=== PATIENT | male | born 1975 | race African-American/Black ===

== ENCOUNTER 2016-12-25 07:50 | Day surgery (SDC) | payer OTHER ==
[2016-12-23 14:18] VITALS: BMI 42.0
[~2016-12-25 07:50] MED LIST: LACTATED RINGERS 1,000 ML IV SCH
[2016-12-25] MEDS ORDERED: LIDOCAINE 1% 20 ML VIAL (10MG/ML) FOR IV START SQ ONE (08:08)
[2016-12-25 08:12] VITALS: RESP 16; TEMP 98.1
[2016-12-25 08:18] LABS: Glucose,Whole Blood 145 mg/dL (75-99)
[2016-12-25] MEDS ORDERED: LIDOCAINE 1% INJ 10MG/ML (20 ML MDV) ONE (09:04)
[2016-12-25] MEDS ORDERED: PROPOFOL 10 MG/ML 20 ML VIAL IV ONE (09:04)
--- NOTE | 2016-12-25 09:07 | P.GSHP ---
History of Present Illness H&P Date: 12/25/16 Chief Complaint: Change in bowel habits Patient here today for colonoscopy. He has had intermittent diarrhea and constipation. He has a history of frequent boils around the groin and perianal location. Denies rectal bleeding or melena. No family history of colon cancer. Past Medical History Past Medical History: Diabetes Mellitus, Hypertension Additional Past Medical History / Comment(s): "digestive problems" History of Any Multi-Drug Resistant Organisms: None Reported Past Surgical History: Orthopedic Surgery Additional Past Surgical History / Comment(s): Right shoulder rotator cuff repair Past Anesthesia/Blood Transfusion Reactions: No Reported Reaction Past Psychological History: No Psychological Hx Reported Smoking Status: Former smoker Past Alcohol Use History: Occasional Additional Past Alcohol Use History / Comment(s): smoked 15 years 1 ppd quit 2013 Past Drug Use History: None Reported - Past Family History Father Additional Family Medical History / Comment(s): epilepsy Mother Family Medical History: Diabetes Mellitus, Hypertension Medications and Allergies Home Medications Medication Instructions Recorded Confirmed Type Lisinopril-Hctz 10-12.5 mg 1 mg PO DAILY 12/27/14 12/25/16 History [Zestoretic 10-12.5] amLODIPine [Norvasc] 5 mg PO DAILY 12/27/14 12/25/16 History metFORMIN HCL [Glucophage] 1 mg PO HS 12/27/14 12/25/16 History ALPRAZolam [Xanax] 0.5 mg PO DAILY 12/23/16 12/25/16 History Loratadine [Claritin] 10 mg PO DAILY 12/23/16 12/25/16 History Osiel Man Vitamin 1 tab PO DAILY 12/23/16 12/25/16 History Multivitamin [Men's Multi-Vitamin] 1 each PO DAILY 12/23/16 12/25/16 History Turmeric Root Extract [Turmeric] 500 mg PO DAILY 12/23/16 12/25/16 History Allergies Allergy/AdvReac Type Severity Reaction Status Date / Time No Known Allergies Allergy Verified 12/25/16 08:08 Surgical - Exam Vital Signs Temp Pulse Resp BP Pulse Ox 98.1 F 67 16 143/92 98 12/25/16 08:11 12/25/16 08:11 12/25/16 08:11 12/25/16 08:11 12/25/16 08:11 Physical exam: General: Well-developed, well-nourished HEENT: Normocephalic, sclerae nonicteric Abdomen: Nontender, nondistended Extremities: No edema Neuro: Alert and oriented Results - Labs Abnormal Lab Results - Last 24 Hours (Table) 12/25/16 Range/Units 08:14 POC Glucose (mg/dL) 145 H (75-99) mg/dL Assessment and Plan (1) Change in bowel habits Narrative/Plan: Will proceed with colonoscopy at this time. Status: Acute
--- NOTE | 2016-12-25 09:30 | P.PCN ---
Date of Procedure: 12/25/16 Preoperative Diagnosis: Postoperative Diagnosis: Procedure(s) Performed: PREOPERATIVE DIAGNOSIS: Change in bowel habits POSTOPERATIVE DIAGNOSIS: Normal exam PROCEDURE: Colonoscopy ANESTHESIA: MAC SURGEON: Anthony Benjamin M.D. SPECIMENS: None ENDOSCOPIC PROCEDURE: The patient was placed on the endoscopy table in the left decubitus position. The Olympus colonoscope was inserted into the anus and passed under direct visualization to the base of the cecum. The appendiceal orifice was visualized. From that point the scope was slowly withdrawn inspecting all surfaces carefully. There were no neoplastic inflammatory or polypoid lesions throughout the cecum, ascending, transverse, descending, sigmoid and rectum. There was no diverticulosis noted. Digital rectal examination was normal. The patient was taken to the recovery room in stable condition per anesthesia guidelines. RECOMMENDATIONS: Increase fiber. Follow-up colonoscopy 10 years. Implants: Indications for Procedure: Operative Findings: Description of Procedure:
[2016-12-25 09:39] VITALS: BP 131/81; PULSE 65
== END 2016-12-25 10:04 | disposition home or self-care (01) ==
LOC: ORWHC2ENDO 07:50
PROVIDERS: ATTEND Surgery
DX: R19.4 Change in bowel habit (principal); E11.9 Type 2 diabetes mellitus without complications; Z79.84 Long term (current) use of oral hypoglycemic drugs; I10 Essential (primary) hypertension; Z87.891 Personal history of nicotine dependence; Z79.899 Other long term (current) drug therapy
CPT/HCPCS: 45378; J2001; J2704

== ENCOUNTER → 2017-03-12 | Outpatient (CLI) | payer OTHER ==
[2017-03-12 10:49] LABS: Basophils % (A) 1 %; CH 29.4; CHCM 32.7; Eosinophils # (A) 0.3 k/uL (0-0.7); Eosinophils % (A) 6 %; HCT 48.4 % (39.0-53.0); HDW 2.25; HGB 15.4 gm/dL (13.0-17.5); Luc # (Auto) 0.07; Luc % (Auto) 2; Lymphocytes # (A) 1.7 k/uL (1.0-4.8); Lymphocytes % (A) 37 %; MCH 28.6 pg (25.0-35.0); MCHC 31.7 g/dL (31.0-37.0); MCV 90.2 fL (80.0-100.0); Mean Platelet Volume 7.5; Monocytes # (A) 0.3 k/uL (0-1.0); Monocytes % (A) 6 %; Neutrophils # (A) 2.3 k/uL (1.3-7.7); Neutrophils % (A) 50 %; RBC 5.37 m/uL (4.30-5.90); RDW 14.2 % (11.5-15.5); WBC 4.6 k/uL (3.8-10.6); WBC (Perox) 4.18
[2017-03-12 11:09] LABS: ALT 71 U/L (21-72); AST 36 U/L (17-59); Alkaline Phosphatase 65 U/L (38-126); Anion Gap 10 mmol/L; Blood Urea Nitrogen 15 mg/dL (9-20); Calcium 9.5 mg/dL (8.4-10.2); Carbon Dioxide 27 mmol/L (22-30); Chloride 102 mmol/L (98-107); Glucose 270 mg/dL (74-99); Non-African American GFR(MDRD) >60 (>60 ml/min/1.73 sqM); Potassium 4.7 mmol/L (3.5-5.1); Sodium 139 mmol/L (137-145); Total Bilirubin 0.5 mg/dL (0.2-1.3); Total Protein 7.5 g/dL (6.3-8.2)
== END | disposition home or self-care (01) ==
LOC: LABWHC1 10:28
PROVIDERS: ATTEND Family Medicine
DX: E11.65 Type 2 diabetes mellitus with hyperglycemia (principal)
CPT/HCPCS: 36415; 80053; 83605; 85025

== ENCOUNTER → 2017-09-03 | Outpatient (CLI) | payer OTHER ==
--- NOTE | 2017-09-03 13:33 | ECHOF ---
Referral Reason:I10 Hypertention MEASUREMENTS -------- HEIGHT: 188.0 cm WEIGHT: 157.4 kg BP: RVIDd: 2.5 cm (< 3.3) IVSd: 1.2 cm (0.6 - 1.1) LVIDd: 5.3 cm (3.9 - 5.3) LVPWd: 1.4 cm (0.6 - 1.1) IVSs: 1.6 cm LVIDs: 3.8 cm LVPWs: 1.4 cm LA Diam: 4.2 cm (2.7 - 3.8) LAESV Index (A-L): 24.30 ml/m Ao Diam: 3.4 cm (2.0 - 3.7) AV Cusp: 2.2 cm (1.5 - 2.6) LA Diam: 4.5 cm (2.7 - 3.8) MV EXCURSION: 26.377 mm (> 18.000) MV EF SLOPE: 91 mm/s (70 - 150) EPSS: 0.2 cm MV E Janes: 0.45 m/s MV DecT: 197 ms MV A Janes: 0.48 m/s MV E/A Ratio: 0.95 RAP: 5.00 mmHg RVSP: 9.81 mmHg FINDINGS -------- Sinus rhythm. This was a technically adequate study. Morbid Obesity The left ventricular size is normal. There is mild concentric left ventricular hypertrophy. Overa ll left ventricular systolic function is low-normal with, an EF between 50 - 55 %. The right ventricle is normal in size. The left atrium is mildly dilated. The right atrial size is normal. The aortic valve is trileaflet, and appears structurally normal. No aortic stenosis or regurgitation. Mild mitral regurgitation is present. Mild tricuspid regurgitation present. There is no evidence of pulmonary hypertension. The right v entricular systolic pressure, as measured by Doppler, is 9.81mmHg. There is no pulmonic regurgitation present. The aortic root size is normal. There is no pericardial effusion. CONCLUSIONS -------- 1. The left ventricular size is normal. 2. There is mild concentric left ventricular hypertrophy. 3. Overall left ventricular systolic function is low-normal with, an EF between 50 - 55 %. 4. The left atrium is mildly dilated. 5. The aortic valve is trileaflet, and appears structurally normal. No aortic stenosis or regurgitati on. 6. Mild mitral regurgitation is present. 7. Mild tricuspid regurgitation present. 8. There is no evidence of pulmonary hypertension. 9. The right ventricular systolic pressure, as measured by Doppler, is 9.81mmHg. 10. There is no pulmonic regurgitation present. 11. The aortic root size is normal. 12. There is no pericardial effusion. CLAIMS ATTORNEY: Emma Durán RDCS
== END | disposition home or self-care (01) ==
LOC: RADNMMAIN 07:42
PROVIDERS: ATTEND Family Medicine
DX: I08.1 Rheumatic disorders of both mitral and tricuspid valves (principal); I10 Essential (primary) hypertension; R07.1 Chest pain on breathing
CPT/HCPCS: 93306

== ENCOUNTER 2018-04-15 18:46 | Emergency (ER) | payer OTHER ==
[2018-04-15 19:03] VITALS: BP 145/99; PULSE 107; RESP 16; TEMP 98.9
[2018-04-15] MEDS ORDERED: IBUPROFEN 600 MG STARTER PACK 4 TAB BTL PO STA (19:34)
[2018-04-15] MEDS ORDERED: ACET/COD 300 MG/30 MG STARTER PACK 6 TAB BTL PO STA (19:34)
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
== END 2018-04-15 20:02 | disposition home or self-care (01) ==
LOC: EC 18:46
DX: T22.20XA Burn of second degree of shoulder and upper limb, except wrist and hand, unspecified site, initial encounter (principal); T31.0 Burns involving less than 10% of body surface; G47.30 Sleep apnea, unspecified; E11.9 Type 2 diabetes mellitus without complications; I10 Essential (primary) hypertension; Z79.84 Long term (current) use of oral hypoglycemic drugs; Z79.899 Other long term (current) drug therapy; Z87.891 Personal history of nicotine dependence; X08.8XXA Exposure to other specified smoke, fire and flames, initial encounter
CPT/HCPCS: 16020; 99283

== ENCOUNTER → 2019-09-01 | Outpatient (CLI) | payer MEDICAID ==
--- NOTE | 2019-09-01 11:59 | US ---
EXAMINATION TYPE: US groin LT DATE OF EXAM: 09/01/2019 COMPARISON: NONE CLINICAL HISTORY: R19.00 lt groin mass. Left groin mass x 2-3 months, history of infected boils per p atient; diabetes, HTN Left Groin US: at patient's c/o palpable just posterior to skin a complex hypoechoic area is imaged = 1.6 x 2.9 x 1.1cm. Superior to this area, another oval hypoechoic mass, with posterior enhancement, is noted just posterior to skin = 0.8 x 0.9 x 0.5cm. Couple of lymph nodes are noted and larger medial node = 3.7 x 1.6 x 1.0cm. Just below skin surface in the dermal layer and/or more superficial subcutaneous tissue there is foca l hypoechoic anechoic area with increased through transmission with second small area similar identif ied. There are prominent left groin lymph nodes included an elongated 1. Last lymph node identified s hows retention of central fatty hilum. IMPRESSION: As above. Favor normal and subcutaneous infectious process or inflammation. Correlate fo r dermatologic lesion and/or cellulitis. If lesion does not resolve with treatment follow-up imaging would be advised.
== END | disposition home or self-care (01) ==
LOC: RADUSWWP 10:47
PROVIDERS: ATTEND Family Medicine
DX: R19.09 Other intra-abdominal and pelvic swelling, mass and lump (principal); R59.9 Enlarged lymph nodes, unspecified

== ENCOUNTER → 2019-12-11 | Outpatient (CLI) | payer MEDICAID ==
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
== END | disposition home or self-care (01) ==
LOC: RADUSMAIN 12:57
PROVIDERS: ATTEND Family Medicine
DX: K11.21 Acute sialoadenitis (principal)
CPT/HCPCS: 76536

== ENCOUNTER → 2019-12-14 | Outpatient (CLI) | payer MEDICAID ==
[2019-12-14 10:23] LABS: African American GFR (CKD) >90 (>60 ml/min/1.73 sqM); Blood Urea Nitrogen 14 mg/dL (9-20); Non-African American GFR(CKD) >90 (>60 ml/min/1.73 sqM)
--- NOTE | 2019-12-14 11:04 | CT ---
EXAMINATION TYPE: CT soft tissue neck w con DATE OF EXAM: 12/14/2019 COMPARISON: None HISTORY: Lump to right side of jaw CT DLP: 955.3 mGycm CONTRAST: CT scan of the neck is performed with IV Contrast, patient injected with 100 mL of Isovue 300. Contrast enhanced CT of the neck was performed from the skull base through the lung apices. Marker pl aced at the site of clinical concern right jaw/neck region. At the site of clinical concern there is no evidence for mass or inflammatory process. AIRWAY: The supraglottic, glottic, and subglottic portions of the airway appear patent and free of mass. SALIVARY GLANDS: The submandibular and parotid glands are free of mass or inflammatory process. THYROID GLAND: No nodules or masses seen. LYMPH NODES: No adenopathy seen greater than 1cm. LUNG APICES: No nodule or mass is seen. OTHER: Vascular structures are patent. No significant degenerative change of the cervical spine. N o abscess seen. Chronic paranasal sinusitis. IMPRESSION: 1.At the site of clinical concern there is no evidence for mass or inflammatory process. No evidence for sialolithiasis.
== END | disposition home or self-care (01) ==
LOC: RADCTMAIN 09:29
PROVIDERS: ATTEND Family Medicine
DX: K11.5 Sialolithiasis (principal)
CPT/HCPCS: 82565; 84520; 70491; 36415; Q9967

== ENCOUNTER → 2020-07-22 | Outpatient (CLI) | payer MEDICAID ==
[2020-07-22 12:45] LABS: Basophils # (A) 0.1 k/uL (0-0.2); Basophils % (A) 1 %; Eosinophils # (A) 0.6 k/uL (0-0.7); Eosinophils % (A) 7 %; HCT 50.1 % (39.0-53.0); HGB 16.5 gm/dL (13.0-17.5); Lymphocytes # (A) 2.5 k/uL (1.0-4.8); Lymphocytes % (A) 32 %; MCH 30.4 pg (25.0-35.0); MCHC 32.9 g/dL (31.0-37.0); MCV 92.5 fL (80.0-100.0); Mean Platelet Volume 7.3; Monocytes # (A) 0.4 k/uL (0-1.0); Monocytes % (A) 5 %; Neutrophils # (A) 4.1 k/uL (1.3-7.7); Neutrophils % (A) 53 %; Platelet Count 285 k/uL (150-450); RBC 5.42 m/uL (4.30-5.90); RDW 13.8 % (11.5-15.5); WBC 7.7 k/uL (3.8-10.6)
[2020-07-22 21:09] LABS: African American GFR (CKD) 94.1 (60.0-200.0); Non-African American GFR(CKD) 81.2 (60.0-200.0)
[2020-07-22 22:51] LABS: Hepatitis A Antibody IgM Non-Reactive (Non-Reactive); Hepatitis B Core IgM Non-Reactive (Non-Reactive); Hepatitis B Surface Antigen Non-Reactive (Non-Reactive); Hepatitis C IgG Antibody Non-Reactive (Non-Reactive)
== END | disposition home or self-care (01) ==
LOC: LABWHC1 11:06
PROVIDERS: ATTEND Physician Assistant
DX: R53.83 Other fatigue (principal); K76.9 Liver disease, unspecified
CPT/HCPCS: 36415; 82565; 84450; 84460; 84520; 85025; 86480; 86705; 86709; 86803; 87340